=== PATIENT | male | born 1960 | race Caucasian/White ===

== ENCOUNTER 2016-07-25 13:19 | Emergency (ER) | payer BC ==
[2016-07-25 16:01] VITALS: BP 158/98
== END 2016-07-25 15:32 | disposition home or self-care (01) ==
LOC: ED 13:19 → EDBD 14:17 → ED 14:17
DX: S02.0XXA Fracture of vault of skull, initial encounter for closed fracture (principal); S02.19XA Other fracture of base of skull, initial encounter for closed fracture; S61.217A Laceration without foreign body of left little finger without damage to nail, initial encounter; W18.09XA Striking against other object with subsequent fall, initial encounter; Y93.9 Activity, unspecified; Y92.69 Other specified industrial and construction area as the place of occurrence of the external cause; Y99.0 Civilian activity done for income or pay
CPT/HCPCS: J1885; J2405; J2550; J3010; J7120; L0150